=== PATIENT | female | born 1965 | race Caucasian/White ===

== ENCOUNTER 2018-12-18 10:59 | Day surgery (SDC) | payer OTHER ==
[2018-12-18] VITALS (10 sets, daily range): BP systolic 110–121; BP diastolic 60–77; PULSE 54–70; RESP 11–28
[~2018-12-18] VITALS: Ht 152.4 cm; Wt 59.0 kg
[~2018-12-18 10:59] MED LIST: CYCLOPENTOLATE 1% 2 ML OPH RIGHT EYE SCH; DICLOFENAC 0.1% 2.5 ML OPH RIGHT EYE SCH; DULO60CA6 PO; GABA100C14 PO; LACTATED RINGER'S 1,000 ML (ENTER RATE) IV SCH; MOXIFLOXACIN 0.5% 3 ML OPH RIGHT EYE SCH; PHENYLephrine 2.5% 15 ML OPH RIGHT EYE SCH; TROPICAMIDE 1% 15 ML OPH RIGHT EYE SCH; ZOLP10TA PO
[2018-12-18] MEDS ORDERED: EPINEPHrine 1 MG INJ ONE (12:34)
[2018-12-18] MEDS ORDERED: TRYPAN BLUE 0.5 ML SYG IO ONE (12:34)
[2018-12-18] MEDS ORDERED: TETRACAINE 0.5% 4 ML OPH ONE (12:34)
[2018-12-18] MEDS ORDERED: TIMOLOL 0.5% 5 ML OPH ONE (12:34)
[2018-12-18] MEDS ORDERED: LIDOCAINE 1% (MPF) 5 ML VIAL ONE (12:34)
[2018-12-18] MEDS ORDERED: TOBRAMYCIN/DEXAMETH 3.5 GM OPH OINT ONE (12:34)
[2018-12-18] MEDS ORDERED: MIDAZOLAM 1 MG/ML 2 ML INJ ONE (13:07)
[2018-12-18] MEDS ORDERED: MEPERIDINE 25 MG INJ IV PRN (13:30)
[2018-12-18] MEDS ORDERED: ONDANSETRON 4 MG INJ IV PRN (13:30)
[2018-12-18] MEDS ORDERED: FENTAnyl 50 MCG/ML VIAL IV PRN ×2 (13:30)
[2018-12-18] MEDS ORDERED: DIPHENHYDRAMINE 50 MG INJ IV PRN (13:30)
[2018-12-18] MEDS ORDERED: ALBUTEROL 0.083% (NEB) 2.5 MG/3 ML AMP HHN PRN (13:30)
[2018-12-18] MEDS ORDERED: METOCLOPRAMIDE 10 MG INJ IV PRN (13:30)
== END 2018-12-18 15:15 | disposition home or self-care (01) ==
LOC: SDS 10:59
PROVIDERS: ATTEND Ophthalmology
DX: H25.011 Cortical age-related cataract, right eye (principal); E11.9 Type 2 diabetes mellitus without complications
CPT/HCPCS: 66984; 82962; J0171; J2250; J3010; V2632; Z7512; Z7610